=== PATIENT | male | born 1985 | race Two or more races ===

== ENCOUNTER 2017-03-17 17:41 | Emergency (ER) | payer OTHER ==
[~2017-03-17] VITALS: Ht 182.9 cm; Wt 129.0 kg
[2017-03-17] MEDS ORDERED: KETOROLAC 30 MG/1 ML IM ONE (18:00)
[2017-03-17] MEDS ORDERED: HYDROmorphone 1 MG/ML, 1ML ONE (19:21)
[2017-03-17] MEDS ORDERED: ONDANSETRON 2MG/ML, 2ML ONE (19:21)
[2017-03-17] MEDS ORDERED: DIAZEPAM 5 MG/ML, 2ML IV ONE (19:30)
[2017-03-17] MEDS ORDERED: SODIUM CHLORIDE FLUSH 10ML SYR IVF ONE (19:30)
[2017-03-17] MEDS ORDERED: ONDANSETRON 2MG/ML, 2ML IVPush ONE (19:30)
[2017-03-17] MEDS ORDERED: HYDROmorphone 1 MG/ML, 1ML IV ONE (19:30)
[2017-03-17] MEDS ORDERED: KETOROLAC 30 MG/1 ML ONE (19:46)
[2017-03-17 22:53] VITALS: BP 136/80
== END 2017-03-17 22:59 | disposition home or self-care (01) ==
LOC: ED 19:11
DX: S39.012A Strain of muscle, fascia and tendon of lower back, initial encounter (principal); X50.1XXA Overexertion from prolonged static or awkward postures, initial encounter; Y93.89 Activity, other specified; Y92.89 Other specified places as the place of occurrence of the external cause; Y99.8 Other external cause status
CPT/HCPCS: 72110; 72148; 96372; 96374; 96375; 99284; J1170; J1885; J2405; J3360

== ENCOUNTER 2017-07-14 13:53 | Emergency (ER) | payer OTHER ==
[~2017-07-14] VITALS: Ht 182.9 cm; Wt 126.5 kg
[2017-07-14] MEDS ORDERED: BENZOCAINE 20% SPRAY 0.5ML ONE (14:31)
[2017-07-14] MEDS ORDERED: BENZOCAINE 20% SPRAY 0.5ML TP ONE (15:00)
[2017-07-14 15:08] VITALS: BP 143/89
== END 2017-07-14 15:10 | disposition home or self-care (01) ==
LOC: ED 14:59
DX: J36 Peritonsillar abscess (principal)
CPT/HCPCS: 10160; 87070; 87075; 87205; 99284